=== PATIENT | male | born 1935 | race Caucasian/White ===

== ENCOUNTER 2020-05-07 09:13 | Outpatient (CLI) | payer MEDICARE | END 2020-05-07 09:14 | disposition home or self-care (01) | LOC: CSHWCC 09:13 | PROVIDERS: ATTEND Nurse Practitioner Family | DX: E11.622 Type 2 diabetes mellitus with other skin ulcer (principal); L97.811 Non-pressure chronic ulcer of other part of right lower leg limited to breakdown of skin; E11.40 Type 2 diabetes mellitus with diabetic neuropathy, unspecified; E11.65 Type 2 diabetes mellitus with hyperglycemia; E78.2 Mixed hyperlipidemia; I25.84 Coronary atherosclerosis due to calcified coronary lesion; I48.20 Chronic atrial fibrillation, unspecified; I69.998 Other sequelae following unspecified cerebrovascular disease; I87.2 Venous insufficiency (chronic) (peripheral); M79.604 Pain in right leg; R60.0 Localized edema; E11.22 Type 2 diabetes mellitus with diabetic chronic kidney disease; I12.9 Hypertensive chronic kidney disease with stage 1 through stage 4 chronic kidney disease, or unspecified chronic kidney disease; N18.30 Chronic kidney disease, stage 3 unspecified | CPT/HCPCS: 97139; G0463; 99213 ==

== ENCOUNTER 2020-05-21 10:05 | Outpatient (CLI) | payer MEDICARE | END 2020-05-21 10:06 | disposition home or self-care (01) | LOC: CSHWCC 10:05 | PROVIDERS: ATTEND Nurse Practitioner Family | DX: E11.622 Type 2 diabetes mellitus with other skin ulcer (principal); L97.811 Non-pressure chronic ulcer of other part of right lower leg limited to breakdown of skin; E11.40 Type 2 diabetes mellitus with diabetic neuropathy, unspecified; E11.65 Type 2 diabetes mellitus with hyperglycemia; E78.2 Mixed hyperlipidemia; I25.84 Coronary atherosclerosis due to calcified coronary lesion; I48.20 Chronic atrial fibrillation, unspecified; I69.998 Other sequelae following unspecified cerebrovascular disease; I87.2 Venous insufficiency (chronic) (peripheral); M79.604 Pain in right leg; R60.0 Localized edema; I12.9 Hypertensive chronic kidney disease with stage 1 through stage 4 chronic kidney disease, or unspecified chronic kidney disease; E11.22 Type 2 diabetes mellitus with diabetic chronic kidney disease; N18.30 Chronic kidney disease, stage 3 unspecified | CPT/HCPCS: 97139; G0463; 99213 ==

== ENCOUNTER 2020-06-04 14:08 | Outpatient (CLI) | payer MEDICARE | END 2020-06-04 14:09 | disposition home or self-care (01) | LOC: CSHWCC 14:08 | PROVIDERS: ATTEND Nurse Practitioner Family | DX: I87.2 Venous insufficiency (chronic) (peripheral) (principal); E11.622 Type 2 diabetes mellitus with other skin ulcer; L97.811 Non-pressure chronic ulcer of other part of right lower leg limited to breakdown of skin; E11.22 Type 2 diabetes mellitus with diabetic chronic kidney disease; E11.40 Type 2 diabetes mellitus with diabetic neuropathy, unspecified; E11.65 Type 2 diabetes mellitus with hyperglycemia; N18.30 Chronic kidney disease, stage 3 unspecified; I12.9 Hypertensive chronic kidney disease with stage 1 through stage 4 chronic kidney disease, or unspecified chronic kidney disease; E78.2 Mixed hyperlipidemia; I25.84 Coronary atherosclerosis due to calcified coronary lesion; I48.20 Chronic atrial fibrillation, unspecified; I69.998 Other sequelae following unspecified cerebrovascular disease; M79.604 Pain in right leg; R60.0 Localized edema | CPT/HCPCS: 97139; G0463; 99213 ==

== ENCOUNTER 2020-09-11 08:55 | Outpatient (CLI) | payer MEDICARE | END 2020-09-11 08:56 | disposition home or self-care (01) | LOC: CSHWCC 08:55 | PROVIDERS: ATTEND Nurse Practitioner Family | DX: E11.622 Type 2 diabetes mellitus with other skin ulcer (principal); L97.811 Non-pressure chronic ulcer of other part of right lower leg limited to breakdown of skin; E11.40 Type 2 diabetes mellitus with diabetic neuropathy, unspecified; E11.65 Type 2 diabetes mellitus with hyperglycemia; E78.2 Mixed hyperlipidemia; I25.84 Coronary atherosclerosis due to calcified coronary lesion; I48.20 Chronic atrial fibrillation, unspecified; I69.998 Other sequelae following unspecified cerebrovascular disease; I87.2 Venous insufficiency (chronic) (peripheral); I12.9 Hypertensive chronic kidney disease with stage 1 through stage 4 chronic kidney disease, or unspecified chronic kidney disease; N18.30 Chronic kidney disease, stage 3 unspecified; M79.604 Pain in right leg | CPT/HCPCS: 99212; G0463 ==

== ENCOUNTER 2020-09-25 09:37 | Outpatient (CLI) | payer MEDICARE | END 2020-09-25 09:38 | disposition home or self-care (01) | LOC: CSHWCC 09:37 | PROVIDERS: ATTEND Nurse Practitioner Family | DX: E11.622 Type 2 diabetes mellitus with other skin ulcer (principal); L97.811 Non-pressure chronic ulcer of other part of right lower leg limited to breakdown of skin; E11.40 Type 2 diabetes mellitus with diabetic neuropathy, unspecified; E11.65 Type 2 diabetes mellitus with hyperglycemia; E78.2 Mixed hyperlipidemia; I25.84 Coronary atherosclerosis due to calcified coronary lesion; I48.20 Chronic atrial fibrillation, unspecified; I69.998 Other sequelae following unspecified cerebrovascular disease; I87.2 Venous insufficiency (chronic) (peripheral); M79.604 Pain in right leg; I12.9 Hypertensive chronic kidney disease with stage 1 through stage 4 chronic kidney disease, or unspecified chronic kidney disease; N18.30 Chronic kidney disease, stage 3 unspecified | CPT/HCPCS: 99212; G0463 ==

== ENCOUNTER 2021-06-17 08:09 | Outpatient (CLI) | payer MEDICARE | END 2021-06-17 08:10 | disposition home or self-care (01) | LOC: CSHWCC 08:09 | PROVIDERS: ATTEND Nurse Practitioner Family | DX: I87.2 Venous insufficiency (chronic) (peripheral) (principal); E11.622 Type 2 diabetes mellitus with other skin ulcer; L97.811 Non-pressure chronic ulcer of other part of right lower leg limited to breakdown of skin; E11.40 Type 2 diabetes mellitus with diabetic neuropathy, unspecified; E11.65 Type 2 diabetes mellitus with hyperglycemia; E11.22 Type 2 diabetes mellitus with diabetic chronic kidney disease; I12.9 Hypertensive chronic kidney disease with stage 1 through stage 4 chronic kidney disease, or unspecified chronic kidney disease; N18.30 Chronic kidney disease, stage 3 unspecified; I25.10 Atherosclerotic heart disease of native coronary artery without angina pectoris; I25.84 Coronary atherosclerosis due to calcified coronary lesion; I48.20 Chronic atrial fibrillation, unspecified; I69.998 Other sequelae following unspecified cerebrovascular disease; E78.2 Mixed hyperlipidemia; M79.604 Pain in right leg | CPT/HCPCS: 11042; 99213; G0463 ==

== ENCOUNTER 2021-07-02 10:10 | Outpatient (CLI) | payer MEDICARE | END 2021-07-02 10:11 | disposition home or self-care (01) | LOC: CSHWCC 10:10 | PROVIDERS: ATTEND Nurse Practitioner Family | DX: L97.811 Non-pressure chronic ulcer of other part of right lower leg limited to breakdown of skin (principal); R60.0 Localized edema | CPT/HCPCS: 97139; G0463; 99213 ==

== ENCOUNTER 2021-07-16 08:23 | Outpatient (CLI) | payer MEDICARE, OTHER | END 2021-07-16 08:24 | disposition home or self-care (01) | LOC: CSHWCC 08:23 | PROVIDERS: ATTEND Nurse Practitioner Family | DX: L97.819 Non-pressure chronic ulcer of other part of right lower leg with unspecified severity (principal); R60.0 Localized edema | CPT/HCPCS: 11042 ==

== ENCOUNTER 2021-08-06 08:55 | Outpatient (CLI) | payer MEDICARE | END 2021-08-06 08:56 | disposition home or self-care (01) | LOC: CSHWCC 08:55 | PROVIDERS: ATTEND Nurse Practitioner Family | DX: L97.819 Non-pressure chronic ulcer of other part of right lower leg with unspecified severity (principal); R60.0 Localized edema | CPT/HCPCS: 11042 ==

== ENCOUNTER 2021-08-19 08:20 | Outpatient (CLI) | payer MEDICARE | END 2021-08-19 08:21 | disposition home or self-care (01) | LOC: CSHWCC 08:20 | PROVIDERS: ATTEND Nurse Practitioner Family | DX: R60.0 Localized edema (principal) ==

== ENCOUNTER 2021-09-02 10:08 | Outpatient (CLI) | payer MEDICARE | END 2021-09-02 10:09 | disposition home or self-care (01) | LOC: CSHWCC 10:08 | PROVIDERS: ATTEND Nurse Practitioner Family | DX: L97.819 Non-pressure chronic ulcer of other part of right lower leg with unspecified severity (principal); R60.0 Localized edema ==

== ENCOUNTER 2021-10-15 08:49 | Outpatient (CLI) | payer MEDICARE | END 2021-10-15 08:50 | disposition home or self-care (01) | LOC: CSHWCC 08:49 | PROVIDERS: ATTEND Nurse Practitioner Family | DX: L97.819 Non-pressure chronic ulcer of other part of right lower leg with unspecified severity (principal); R60.0 Localized edema | CPT/HCPCS: 97139; G0463; 11042; 99213 ==

== ENCOUNTER 2021-10-24 08:14 | Day surgery (SDC) | payer OTHER ==
[2021-10-24] MEDS ORDERED: Ascorbic Acid 500 mg Chewable Tablet ONE (09:37)
[2021-10-24] MEDS ORDERED: Aspirin 325 MG TAB ONE (09:38)
[2021-10-24] MEDS ORDERED: Iopamidol 300 61% 100 ML VIAL FS ONE (09:43)
[2021-10-24] MEDS ORDERED: Iopamidol 300 61% 50 ML VIAL FS ONE (09:43)
[2021-10-24] MEDS ORDERED: Nitroglycerin 50 MG/250 ML BOT 0 ML ONE (09:52)
[2021-10-24] MEDS ORDERED: Adenosine 6 MG/2 ML VIAL ONE (09:52)
[2021-10-24] MEDS ORDERED: Lidocaine 1% 20 ML MDV ONE (09:52)
[2021-10-24] MEDS ORDERED: Heparin 10,000 UNITS/ 10 ML VIAL ONE (09:52)
[2021-10-24] MEDS ORDERED: Sodium Chloride 0.9% 1,000 ML ONE (09:53)
[2021-10-24] MEDS ORDERED: PHENYLEPHRINE-NS 100 MCG/ML 10 ML SYRINGE ONE (09:53)
[2021-10-24] MEDS ORDERED: Atropine Sulfate 0.4 mg/1 ml Vial ONE (09:54)
[2021-10-24 09:59] LABS: #Eosinphils 0.2 10x3/uL (0.0-0.5); #Monocytes 0.9 10x3/uL (0.0-1.1); #Neutrophils 4.3 10x3/uL (1.5-8.4); %Basophils 0.4 % (0.0-2.0); %Eosinophils 2.7 % (0.0-6.0); %Lymphocytes 32.3 % (18.0-47.0); %Monocytes 10.5 % (0.0-10.0); %Neutrophils 53.7 % (40.0-75.0); Mean Corpuscular HGB CONC 33.9 g/dL (32.0-36.0); Mean Corpuscular Hemoglobin 32.1 pg (27.0-33.0); Mean Corpuscular Volume 94.7 fl (81.2-95.1); Mean Platelet Volume 9.7 fl (7.4-10.4); Platelet Count 245 10x3/uL (150-450); RBC Distribution Width 11.9 % (11.5-14.5); Red Blood Cell (RBC) Count 4.68 10x6/uL (4.32-5.72); White Blood Cell (WBC) Count 8.1 10x3/uL (3.5-10.5)
[2021-10-24] MEDS ORDERED: Phenylephrine 40 MG/NS 250 ML 250 ML ONE (09:59)
[2021-10-24 10:01] LABS: Anion Gap 13 mmol/L (10-20); BUN (Urea Nitrogen) 25 mg/dL (8.4-25.7); Calc. Creatinine Clearance 0 mL/min (70-130); Calcium 9.8 mg/dL (7.8-10.44); Carbon Dioxide 26 mmol/L (23-31); Chloride 103 mmol/L (98-107); Estimated GFR 65; Glucose 117 mg/dL (83-110); Potassium 4.1 mmol/L (3.5-5.1); Sodium 138 mmol/L (136-145)
[2021-10-24 10:07] LABS: Prothrombin Time 10.9 sec (9.5-12.1)
[2021-10-24 10:20] LABS: SARS-CoV-2 NAA Rapid Test DETECTED (NotDetected)
[2021-10-24] MEDS ORDERED: Fentanyl 100 MCG/2 ML VIAL ONE (10:46)
[2021-10-24] MEDS ORDERED: Midazolam HCl 2 mg/2 ml Vial ONE (10:47)
== END 2021-10-24 14:30 | disposition home or self-care (01) ==
LOC: CSHSDC 08:14
PROVIDERS: ATTEND Specialist
PROC: B302ZZZ Plain Radiography of Left Subclavian Artery (ICD-10-PCS; principal; 2021-10-24)
PROC: B300ZZZ Plain Radiography of Thoracic Aorta (ICD-10-PCS; 2021-10-24)
PROC: B30 Imaging, Upper Arteries, Plain Radiography (ICD-10-PCS; 2021-10-24)
PROC: B305ZZZ Plain Radiography of Bilateral Common Carotid Arteries (ICD-10-PCS; 2021-10-24)
PROC: B30 Imaging, Upper Arteries, Plain Radiography (ICD-10-PCS; 2021-10-24)
PROC: B30 Imaging, Upper Arteries, Plain Radiography (ICD-10-PCS; 2021-10-24)
PROC: B208YZZ Plain Radiography of Left Internal Mammary Bypass Graft using Other Contrast (ICD-10-PCS; 2021-10-24)
DX: I65.23 Occlusion and stenosis of bilateral carotid arteries (principal); I70.208 Unspecified atherosclerosis of native arteries of extremities, other extremity; I10 Essential (primary) hypertension; E78.5 Hyperlipidemia, unspecified; E11.9 Type 2 diabetes mellitus without complications; I48.91 Unspecified atrial fibrillation; I25.10 Atherosclerotic heart disease of native coronary artery without angina pectoris; Z20.822 Contact with and (suspected) exposure to COVID-19; Z88.5 Allergy status to narcotic agent; Z88.8 Allergy status to other drugs, medicaments and biological substances
CPT/HCPCS: 36215; 36222; 36225; 36227; 75710; 80048; 85025; 85610; 93005; C1760; C1769; U0002; 93010; 99152; 99153; J0153; J0461; J1644; J2250; J3010; J7050; Q9967

== ENCOUNTER 2021-11-04 10:27 | Outpatient (CLI) | payer MEDICARE | END 2021-11-04 10:28 | disposition home or self-care (01) | LOC: CSHWCC 10:27 | PROVIDERS: ATTEND Preventive Medicine Undersea and Hyperbaric Medicine | DX: L97.819 Non-pressure chronic ulcer of other part of right lower leg with unspecified severity (principal); R60.0 Localized edema | CPT/HCPCS: 11042 ==

== ENCOUNTER 2021-11-18 12:54 | Outpatient (CLI) | payer OTHER | END 2021-11-18 12:55 | disposition home or self-care (01) | LOC: CSHWCC 12:54 | PROVIDERS: ATTEND Preventive Medicine Undersea and Hyperbaric Medicine | DX: L97.819 Non-pressure chronic ulcer of other part of right lower leg with unspecified severity (principal); R60.0 Localized edema | CPT/HCPCS: 97139; G0463; 99213 ==

== ENCOUNTER 2021-12-02 09:00 | Outpatient (CLI) | payer OTHER | END 2021-12-02 09:01 | disposition home or self-care (01) | LOC: CSHWCC 09:00 | PROVIDERS: ATTEND Nurse Practitioner Family | DX: L97.819 Non-pressure chronic ulcer of other part of right lower leg with unspecified severity (principal); R60.0 Localized edema | CPT/HCPCS: 99213; G0463 ==

== ENCOUNTER 2021-12-24 11:16 | Outpatient (CLI) | payer OTHER | END 2021-12-24 11:17 | disposition home or self-care (01) | LOC: CSHWCC 11:16 | PROVIDERS: ATTEND Nurse Practitioner Family | DX: L97.819 Non-pressure chronic ulcer of other part of right lower leg with unspecified severity (principal); R60.0 Localized edema | CPT/HCPCS: 97139; G0463; 99213 ==

== ENCOUNTER 2022-01-21 11:36 | Outpatient (CLI) | payer OTHER | END 2022-01-21 11:37 | disposition home or self-care (01) | LOC: CSHWCC 11:36 | PROVIDERS: ATTEND Nurse Practitioner Family | DX: L97.819 Non-pressure chronic ulcer of other part of right lower leg with unspecified severity (principal); R60.0 Localized edema ==

== ENCOUNTER 2022-04-06 15:28 | Outpatient (CLI) | payer OTHER | END 2022-04-06 15:29 | disposition home or self-care (01) | LOC: CSHWCC 15:28 | PROVIDERS: ATTEND Nurse Practitioner Family | DX: L97.818 Non-pressure chronic ulcer of other part of right lower leg with other specified severity (principal) | CPT/HCPCS: 97139; G0463; 99213 ==

== ENCOUNTER 2022-04-15 12:57 | Outpatient (CLI) | payer OTHER | END 2022-04-15 12:58 | disposition home or self-care (01) | LOC: CSHCT 12:57 | PROVIDERS: ATTEND Internal Medicine | DX: F03.B18 Unspecified dementia, moderate, with other behavioral disturbance (principal); W19.XXXA Unspecified fall, initial encounter; R26.9 Unspecified abnormalities of gait and mobility | CPT/HCPCS: 70450 ==

== ENCOUNTER 2022-08-19 09:54 | Outpatient (CLI) | payer OTHER ==
[~2022-08-19 09:54] MED LIST: Magnevist 469MG/ML 20 ML VIAL ONE
== END 2022-08-19 09:55 | disposition home or self-care (01) ==
LOC: CSHCT 09:54
PROVIDERS: ATTEND Urology
DX: R31.9 Hematuria, unspecified (principal); N40.3 Nodular prostate with lower urinary tract symptoms; Z95.0 Presence of cardiac pacemaker; J90 Pleural effusion, not elsewhere classified; R91.1 Solitary pulmonary nodule; I70.0 Atherosclerosis of aorta; I35.0 Nonrheumatic aortic (valve) stenosis; K82.8 Other specified diseases of gallbladder; N40.1 Benign prostatic hyperplasia with lower urinary tract symptoms; K57.90 Diverticulosis of intestine, part unspecified, without perforation or abscess without bleeding
CPT/HCPCS: 71045; 72197; 74176; 82565; A9579